=== PATIENT | female | born 1990 | race Caucasian/White ===

== ENCOUNTER → 2018-06-14 | Outpatient (CLI) | payer OTHER ==
[~2018-06-14] MED LIST: METR-197 PO; NITR-65 PO
--- NOTE | 2018-06-14 17:09 | Diagnostic Imaging Report ---
INDICATION: Evaluate growth. TECHNIQUE: Multiple real-time grayscale images were obtained over the gravid uterus. COMPARISON: 03/23/2018. FINDINGS: There is a single live fetus in a cephalic presentation. heart rate was recorded at 134 beats per minute. Placenta is posterior. Amniotic fluid volume is normal. Four chamber heart view was visualized today. The cervical length is 3.5 cm. Biophysical profile was performed. Amniotic fluid index is 10.4 cm. Overall score is 8 out of 8. Biometrical measurements are as follows: Biparietal 8.25 cm, age 33 weeks 2 days. Head circumference 29.89 cm, age 33 weeks 1 days. Abdominal circumference 29.17 cm, age 33 weeks 2 days. Femur length 6.34 cm, age 32 weeks 6 days. Sonographic estimate age: 33 weeks 1 days. Sonographic estimated date of delivery: 08/01/18. Estimated Weight: 2108 gm (+/- 308 gm). LMP percentile: 73%. heart rate: 134 beats per minute. number: 1 of 1. IMPRESSION: Single live IUP 33 weeks gestational age demonstrated normal interval growth when compared with prior exam. No abnormality is detected. The four-chamber heart view was visualized today. The overall biophysical profile score is normal at 8 out of 8. Dictated by: Dictated on workstation # [id number]
== END ==
LOC: RAD 10:54
PROVIDERS: ATTEND Obstetrics & Gynecology
DX: O24.410 Gestational diabetes mellitus in pregnancy, diet controlled (principal); Z3A.33 33 weeks gestation of pregnancy
CPT/HCPCS: 76805; 76819

== ENCOUNTER 2018-08-09 05:55 | Inpatient (IN) | payer OTHER ==
[2018-08-09] VITALS (57 sets, daily range): BP systolic 94–152; BP diastolic 50–92
[~2018-08-09] VITALS: Ht 177.8 cm; Wt 106.6 kg
--- NOTE | 2018-08-09 05:49 | NUR ---
FACUNDO MANRIQUEZ presented to unit via ambulatory from home, accompanied by so, with c/o INDUCTION. FACUNDO MANRIQUEZ weighed, gowned, voided, and to bed. EFHM and TOCO applied, VS taken. FACUNDO MANRIQUEZ oriented to bed controls, call light, TV, heat, and A/C controls.
[2018-08-09] MEDS ORDERED: MINERAL OIL CONCENTRATE 99.9% 15 ML UDC TOP PRN (06:15)
[2018-08-09 06:29] LABS: BILIRUBIN,URINE NEGATIVE (NEGATIVE); CLARITY,URINE CLEAR; COLOR,URINE YELLOW; GLUCOSE, URINE (UA) NEGATIVE (NEGATIVE); KETONES,URINE NEGATIVE (NEGATIVE); LEUKOCYTE ESTERASE ,URINE 3+ (NEGATIVE); NITRITE,URINE NEGATIVE (NEGATIVE); PH,URINE 6.5 (5-9); PROTEIN,URINE NEGATIVE (NEGATIVE); UROBILINOGEN,URINE NORMAL (NORMAL)
[2018-08-09 06:33] LABS: BASOPHILS % (AUTO) 0 % (0-10); EOSINOPHILS # (AUTO) 0.1 10^3/uL (0.0-0.3); EOSINOPHILS % (AUTO) 1 % (0-10); HEMATOCRIT 35 % (35-52); HEMOGLOBIN 11.9 G/DL (11.5-16.0); LYMPHOCYTES # (AUTO) 1.7 X 10^3 (1.0-4.0); LYMPHOCYTES % (AUTO) 24 % (12-44); MEAN CORPUSCULAR HGB CONC 34 G/DL (32-36); MEAN CORPUSCULAR VOLUME 86 FL (80-99); MEAN PLATELET VOLUME 11.6 FL (7.4-10.4); MONOCYTES # (AUTO) 0.6 X 10^3 (0.0-1.0); MONOCYTES % (AUTO) 9 % (0-12); NEUTROPHILS # (AUTO) 4.7 X 10^3 (1.8-7.8); NEUTROPHILS % (AUTO) 67 % (42-75); PLATELET COUNT 198 10^3/uL (130-400); RED BLOOD COUNT 4.04 10^6/uL (4.35-5.85); RED CELL DISTRIBUTION WIDTH 13.9 % (10.0-14.5)
[2018-08-09] MEDS ORDERED: LACTATED RINGERS 1,000 ML IV SCH ×2 (06:34→13:04)
[2018-08-09 06:36] LABS: BACTERIA,URINE MODERATE /HPF; WBC,URINE 0-2 /HPF
[2018-08-09 06:37] LABS: MEAN CORPUSCULAR HEMOGLOBIN 29 PG (25-34)
[2018-08-09] MEDS ORDERED: TERBUTALINE INJ 1 MG/ML (BRETHINE) AMP SC PRN (06:45)
[2018-08-09] MEDS ORDERED: MISOPROSTOL 100 MCG (CYTOTEC) TAB PO ONE (06:45)
[2018-08-09] MEDS: LACTATED RINGERS 1,000 ML IV SCH ×2 (08:42→16:51)
[2018-08-09] MEDS ORDERED: MISOPROSTOL 100 MCG (CYTOTEC) TAB PO SCH ×2 (10:45→12:00)
[2018-08-09] MEDS ORDERED: SUFENTA 0.6MCG/ML BUPIVA 0.125 100 ML ONE (12:04)
--- NOTE | 2018-08-09 12:10 | NUR ---
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 Procedure explained, consent reviewed and signed by anesthesia. Questions answered to patient's satisfaction. Time out taken to verify correct patient/procedure. Patient up to side of bed, assisted into sitting position. Betadine prep done x3 and sterile drape applied. Local done, see anesthesia record. Test dose given, see anesthesia record for drug and dosage. Epidural catheter secured in place. Epidural placement complete. Assisted back into bed, monitors adjusted. Epidural dosed, see anesthesia record. Epidural of Sufenta/Bupivicaine @ 12 cc/hr stated per pump. Patient tolerated procedure well.
[2018-08-09] MEDS: EPIDURAL (SUFENTA 0.6MCG/ML BUPIVA 0.125%) 100 ML BAG EPI SCH ×2 (12:43→18:49)
[2018-08-09] MEDS ORDERED: METOCLOPRAMIDE INJ 10 MG/2 ML (REGLAN) IV PRN (13:15)
[2018-08-09] MEDS ORDERED: NALOXONE 0.4 MG/ML 1 ML (NARCAN) VIAL IV PRN ×2 (13:15)
[2018-08-09] MEDS ORDERED: diphenhydrAMINE 50 MG/ML INJ (BENADRYL) IV PRN (13:15)
[2018-08-09] MEDS ORDERED: ONDANSETRON 4 MG/2 ML (SDV) Z0FRAN IV PRN (13:15)
[2018-08-09] MEDS ORDERED: CATHETER FLUSH 10 ML SYR IV SCH (14:00)
[2018-08-09] MEDS ORDERED: OXYTOCIN/NORMAL SALINE 500 ML IV ONE (15:22)
[2018-08-09] MEDS ORDERED: OXYTOCIN/NORMAL SALINE 500 ML IV SCH ×2 (16:00→22:06)
[2018-08-09] MEDS ORDERED: CETI10CA PO (16:28)
[2018-08-09] MEDS ORDERED: PREN1TAB79 PO (16:28)
[2018-08-09] MEDS ORDERED: CITRIC ACID/SOB CIT (BICITRA) 30 ML UDC ONE (19:04)
[2018-08-09] MEDS ORDERED: CITRIC ACID/SOB CIT (BICITRA) 30 ML UDC PO ONE (19:15)
--- NOTE | 2018-08-09 19:40 | NUR ---
Pt. called nurse in to room and states that she is feeling lots of pressure. SVE shows that pt is complete. 1941: Dr. Gerardo called and informed that pt is complete and 0 to -[address] Gerardo states that she will be up soon.
[2018-08-09] MEDS ORDERED: LIDOCAINE 1% INJ 20 ML 20 ML VIAL ONE (20:15)
--- NOTE | 2018-08-09 21:25 | NUR ---
2124: Delivery of viable female infant in labor and delivery room. to mom's chest at this time. Dried, warmed, and stimulated. Pitocin turned off at this time. 2135: Placenta delivered spontaneously. Pitocin wide open. Pt. remains in [facility] for repair of 2nd degree laceration. 2145: Lidocaine given at this time for relief of repair. 2199: done with repair. Fundus massaged by nurse at this time. 1 under umbilicus, firm, minimal bleeding noted. Pt cleaned up and taken out of stirrups. Chux changed for adequate assessment of bleeding.
--- NOTE | 2018-08-09 22:12 | OB Labor & Delivery Record ---
Vag Delivery Note Vag Delivery Note Date of Delivery: 08/09/18 Preoperative Diagnosis: Janie Malcolm is a 28 /Para 2 /0 , Gestational Age 40 weeks with gestationa diabetes, diet controlled Postoperative Diagnosis: Same Surgeon: TIMUR TUCKER Poultry Picker: Barrie Mcmanus, MS III Anesthesia: epidural Delivery Type: vaginal Findings: Viable female infant, apgars 9/9, weight 7#0 oz Lacerations: 2nd degree with partial capsulotomy Intact placenta with 3 vessel cord. No nuchal cord, body cord or shoulder dystocia Estimated Blood Loss: 750 ml Complications: None Condition: Stable Description of Procedure: The patient is a 28 /Para 2 /0 ,Gestational Age 40 weeks with gestational diabetes, diet controlled who presented for induction of labor. She was admitted and informed consent was obtained. Her labor course was remarkable for misoprostol x 2 then SROM and augmentation with Pitocin. She progressed to complete dilatation and began to push. She was then set up for delivery. The 's head was delivered atraumatically in the EMMETT position. The shoulders and remainder of the 's body were then delivered without difficulty. Upon delivery, the head was held below the level of the perineum and the mouth and nares were bulb suctioned. There was a loop of cord near the head, but not a nuchal cord. The cord was doubly clamped and cut and the was handed off to the pediatric staff. An intact placenta with 3-vessel cord delivered via [place] and there was found to be minimal bleeding.~ Vigorous fundal massage was performed and the fundus was found to be firm. IV oxytocin was given. Examination of the vagina and perineum revealed a 2nd degree laceration with a small tear in the capsule of the sphincter. This was repaired in the usual fashion with 3-0 vicryl suture. Following the repair, sponge, instrument and needle counts were correct. Mom and baby were both in stable condition in the labor suite. Vitals - Labs Vital Signs - I&O Vital Signs Date Time Temp Pulse Resp B/P (MAP) Pulse Ox O2 Delivery O2 Flow Rate FiO2 08/09/18 19:00 99.7 96 18 121/65 (83) 99 Room Air 08/09/18 18:45 99.2 96 18 94/53 (67) 98 Room Air 08/09/18 18:29 79 18 104/51 (68) 98 Room Air 08/09/18 18:15 86 18 120/61 (80) 97 Room Air 08/09/18 18:00 76 18 126/71 (89) 98 Room Air 08/09/18 17:45 98.9 75 18 130/69 (89) 97 Room Air 08/09/18 17:30 89 18 128/69 (88) 98 Room Air 08/09/18 17:15 81 18 117/77 (90) 98 Room Air 08/09/18 17:00 123 18 124/66 (85) 98 Room Air 08/09/18 16:45 98.6 63 18 117/65 (82) 99 Room Air 08/09/18 16:30 79 18 122/67 (85) 99 Room Air 08/09/18 16:15 63 18 123/68 (86) 98 Room Air 08/09/18 16:00 98.4 60 18 115/60 (78) 97 Room Air 08/09/18 15:45 57 18 115/62 (79) 98 Room Air 08/09/18 15:30 64 18 120/76 (91) 98 Room Air 08/09/18 15:15 74 18 118/74 (89) 98 Room Air 08/09/18 15:00 63 18 115/70 (85) 98 Room Air 08/09/18 14:45 72 18 121/56 (77) 99 Room Air 08/09/18 14:30 98.1 72 18 95/50 (65) 97 Room Air 08/09/18 14:15 82 18 116/70 (85) 98 Room Air 08/09/18 14:00 64 18 124/76 (92) 98 Room Air 08/09/18 13:45 68 18 104/59 (74) 98 Room Air 08/09/18 13:30 65 18 107/55 (72) 98 Room Air 08/09/18 13:15 89 18 117/72 (87) 99 Room Air 08/09/18 13:00 81 18 118/66 (83) 98 Room Air 08/09/18 12:45 98.8 84 18 117/70 (86) 98 Room Air 08/09/18 12:43 81 18 129/75 (93) 98 Room Air 08/09/18 12:36 79 18 126/77 (93) 98 Room Air 08/09/18 12:33 77 18 134/79 (97) 98 Room Air 08/09/18 12:30 75 18 134/71 (92) 99 Room Air 08/09/18 12:25 82 18 132/83 (99) 100 Room Air 08/09/18 12:16 89 18 152/70 (97) 100 Room Air 08/09/18 12:00 98.5 84 18 134/70 (91) Room Air 08/09/18 11:30 93 18 121/81 (94) Room Air 08/09/18 11:00 79 18 120/74 (89) Room Air 08/09/18 10:30 68 18 122/79 (93) Room Air 08/09/18 10:00 59 18 121/78 (92) Room Air 08/09/18 09:30 66 18 122/79 (93) Room Air 08/09/18 09:00 98.0 63 18 125/75 (92) Room Air 08/09/18 08:30 72 18 123/78 (93) Room Air 08/09/18 08:00 82 16 121/77 (92) Room Air 08/09/18 07:30 Room Air 08/09/18 06:00 90 16 145/92 (109) Room Air Labs Laboratory Tests 08/09/18 06:05: Urine Color YELLOW, Urine Clarity CLEAR, Urine pH 6.5, Urine Specific [place] 1.015L, Urine Protein NEGATIVE, Urine Glucose (UA) NEGATIVE, Urine Ketones NEGATIVE, Urine Nitrite NEGATIVE, Urine Bilirubin NEGATIVE, Urine Urobilinogen NORMAL, Urine Leukocyte Esterase 3+H, Urine RBC (Auto) NEGATIVE, Urine RBC NONE , Urine WBC 0-2, Urine Squamous Epithelial Cells 2-5, Urine Crystals NONE, Urine Bacteria MODERATEH, Urine Casts NONE, Urine Mucus NEGATIVE, Urine Culture Indicated NO 08/09/18 06:18: White Blood Count 7.0, Red Blood Count 4.04L, Hemoglobin 11.9, Hematocrit 35, Mean Corpuscular Volume 86, Mean Corpuscular Hemoglobin 29, Mean Corpuscular Hemoglobin Concent 34, Red Cell Distribution Width 13.9, Platelet Count 198, Mean Platelet Volume 11.6H, Neutrophils (%) (Auto) 67, Lymphocytes (%) (Auto) 24 , Monocytes (%) (Auto) 9, Eosinophils (%) (Auto) 1, Basophils (%) (Auto) 0, Neutrophils # (Auto) 4.7, Lymphocytes # (Auto) 1.7, Monocytes # (Auto) 0.6, Eosinophils # (Auto) 0.1, Basophils # (Auto) 0.0 08/09/18 06:45: Glucometer 104 TIMUR TUCKER DO Aug 09, 2018 22:12
[2018-08-09] MEDS ORDERED: MEASLES,MUMPS,RUBELLA 1 EA INJ SQ ONE (22:15)
[2018-08-09] MEDS ORDERED: TETANUS,DIPTH,PERTUSS P/F (BOOSTRIX) 0.5 ML VIAL IM ONE (22:15)
[2018-08-09] MEDS ORDERED: HYDROcodone/APAP 5 MG/325 MG (LORTAB) TAB PO PRN (22:15)
[2018-08-09] MEDS ORDERED: DIBUCAINE (NUPERCAINAL) 1% OINT 30 GM TOP PRN (22:15)
[2018-08-09] MEDS ORDERED: BENZOCAINE/MENTHOL (DERMOPLAST) 56 ML CAN TP PRN (22:15)
--- NOTE | 2018-08-09 22:15 | NUR ---
2215: Fundus firm and midline. One under umbilicus. Minimal bleeding noted at this time. 2230: Fundus firm and midline. One under umbilicus. Minimal bleeding noted at this time. at breast eating at this time. 2245: Fundus firm and midline. One under umbilicus. Minimal bleeding noted at this time. 2300: Fundus firm and midline. Two under umbilicus. Minimal bleeding noted at this time. Pt still can't move her left leg well. States that she does not feel the need to void at this time.
[2018-08-09] MEDS: IBUPROFEN 600 MG (MOTRIN) TAB PO SCH (23:05)
--- NOTE | 2018-08-09 23:45 | NUR ---
Fundus firm and two under. Minimal bleeding noted. Pt. cleaned up and pad and underwear put on. Epidural cath taken out. Tip intact. Pt transferred to wheelchair and transferred to room. While being transferred, pt states that she is feeling very light headed and about to pass out. Pt has no color and is starting to pass out by the time we got to room. Nurse called for help. Pt. vomiting at this time. Pt. helped to bed with help of multiple nurses. 0000: Vital taken and WNL's. 0006: BS 102 0015: Pt states that she is feeling much better. Pt's color has returned. Pt is sat up and has a sandwich tray at bedside. Family is now in the room. 0020: Cares turned over to Frankie Torres RN.
[2018-08-10] VITALS (7 sets, daily range): BP systolic 90–117; BP diastolic 48–76
[2018-08-10] MEDS: WITCH HAZEL(TUCKS) 40 EA JAR TOP PRN (04:00)
--- NOTE | 2018-08-10 04:00 | NUR ---
Infant back to room per nsy staff. VS taken on pt and stable. pt up to side of bed and dangling feet, denies s/s of light headedness. Pt standing with stand by assist and ambulated to bathroom to void. Small amount of lochia rubra noted. Void noted. Pericare explained and demonstrated. While changing pt's gown she states she is starting to feel like before. Help called for WC. Pt sitting on toilet with Rn in front of pt, cool cloth to face. No emesis noted. Pt transferred to with assist x2, pt still alert but feels light headed still, pale color to face. pt to bed and laying. pt states feeling much better laying down and color returns to face. VS taken and LR bolus infusing, zofran given for nausea. Will cont to monitor. Warm blanket given, s.o at bedside.
[2018-08-10] MEDS: LACTATED RINGERS 1,000 ML IV SCH (04:17)
[2018-08-10] MEDS: IBUPROFEN 600 MG (MOTRIN) TAB PO SCH ×3 (05:05→22:44)
[2018-08-10 05:14] LABS: BASOPHILS % (AUTO) 0 % (0-10); EOSINOPHILS % (AUTO) 0 % (0-10); HEMATOCRIT 27 % (35-52); LYMPHOCYTES # (AUTO) 1.6 X 10^3 (1.0-4.0); LYMPHOCYTES % (AUTO) 13 % (12-44); MEAN CORPUSCULAR HEMOGLOBIN 29 PG (25-34); MEAN CORPUSCULAR HGB CONC 33 G/DL (32-36); MEAN CORPUSCULAR VOLUME 89 FL (80-99); MONOCYTES % (AUTO) 7 % (0-12); NEUTROPHILS # (AUTO) 10.2 X 10^3 (1.8-7.8); NEUTROPHILS % (AUTO) 80 % (42-75); PLATELET COUNT 195 10^3/uL (130-400); RED BLOOD COUNT 3.06 10^6/uL (4.35-5.85); RED CELL DISTRIBUTION WIDTH 13.7 % (10.0-14.5); WHITE BLOOD COUNT 12.8 10^3/uL (4.3-11.0)
[2018-08-10] MEDS ORDERED: CATHETER FLUSH 10 ML SYR IV SCH (06:00)
--- NOTE | 2018-08-10 06:33 | NUR ---
Dr. Gerardo updated on pt's light headedness and dizziness with ambulation to the BR x2, Discussed hgb, and vs. No new orders received.
--- NOTE | 2018-08-10 07:50 | NUR ---
Jena Ocampo assisted pt up to bathroom. pt asymptomatic.
--- NOTE | 2018-08-10 08:39 | NUR ---
Dr Gerardo to see patient.
--- NOTE | 2018-08-10 09:03 | Anesthesia-Regional Post-Op ---
Regional Patient Condition Mental Status: Alert, Oriented x3 Circulation: Same as Pre-Op Headache: Absent Sensation: Full Recovery Motor Block: Absent Post Op Complications Complications None Follow Up Care/Instructions Patient Instructions None needed. Anesthesia/Patient Condition Patient is doing well, no complaints, stable vital signs, no apparent adverse anesthesia problems. No complications reported per nursing. FACUNDO GONZALEZ CRNA Aug 10, 2018 09:03
[2018-08-10] MEDS: FERROUS SULF 325 MG (IRON) TAB PO SCH (10:17)
[2018-08-10] MEDS: DOCUSATE SODIUM 100 MG (COLACE) CAP PO SCH ×2 (10:17→22:44)
[2018-08-10] MEDS: PRENATAL VITAMIN 1 EA TAB PO SCH (10:17)
--- NOTE | 2018-08-10 17:37 | Postpartum Progress Note ---
Note Note Day # 1 Subjective: Patient is without complaints. Ambulating, voiding. Tolerating a regular diet without nausea or vomiting. Normal lochia. Pain is well controlled with oral pain medications. [] feeding. [] Objective: Laboratory Tests Test 08/10/18 00:04 08/10/18 04:35 08/10/18 06:23 Range/Units Glucometer 102 95 70-110 MG/DL White Blood Count 12.8 H 4.3-11.0 10^3/uL Red Blood Count 3.06 L 4.35-5.85 10^6/uL Hemoglobin 9.0 #L 11.5-16.0 G/DL Hematocrit 27 L 35-52 % Mean Corpuscular Volume 89 80-99 FL Mean Corpuscular Hemoglobin 29 25-34 PG Mean Corpuscular Hemoglobin Concent 33 32-36 G/DL Red Cell Distribution Width 13.7 10.0-14.5 % Platelet Count 195 130-400 10^3/uL Mean Platelet Volume 12.0 H 7.4-10.4 FL Neutrophils (%) (Auto) 80 H 42-75 % Lymphocytes (%) (Auto) 13 12-44 % Monocytes (%) (Auto) 7 0-12 % Eosinophils (%) (Auto) 0 0-10 % Basophils (%) (Auto) 0 0-10 % Neutrophils # (Auto) 10.2 H 1.8-7.8 X 10^3 Lymphocytes # (Auto) 1.6 1.0-4.0 X 10^3 Monocytes # (Auto) 1.0 0.0-1.0 X 10^3 Eosinophils # (Auto) 0.0 0.0-0.3 10^3/uL Basophils # (Auto) 0.0 0.0-0.1 10^3/uL 08/10/18 08/10/18 08/10/18 10:16 13:50 17:22 Temp 98.4 97.9 98.4 Pulse 78 94 85 Resp 18 18 18 B/P (MAP) 110/66 (81) 117/76 (90) 111/71 (84) Pulse Ox 97 O2 Delivery Room Air Room Air Room Air 08/10/18 00:00 Intake Total 2000 ml Balance 2000 ml Physical Exam: General - Alert and oriented, no apparent distress Abdomen - Soft, appropriately tender to palpation, non-distended, fundus firm at umbilicus Extremities - no edema, negative Lance's bilaterally [] Assessment: [] post- day # [], status post [] vaginal delivery. Recovering well, hemodynamically stable [] Plan: Routine care. Encourage breast feeding. Encourage ambulation. Ferrous sulfate supplementation. Plan for discharge [] Vitals - Labs Vital Signs - I&O Vital Signs Date Time Temp Pulse Resp B/P (MAP) Pulse Ox O2 Delivery O2 Flow Rate FiO2 08/10/18 17:22 98.4 85 18 111/71 (84) Room Air 08/10/18 13:50 97.9 94 18 117/76 (90) Room Air 08/10/18 10:16 98.4 78 18 110/66 (81) 97 Room Air 08/10/18 04:11 65 18 97/56 (70) 100 Room Air 08/10/18 04:00 98.0 86 18 103/68 (80) 97 Room Air 08/10/18 00:00 98.0 86 18 117/73 (88) 98 Room Air 08/09/18 23:00 102 18 113/58 (76) 97 Room Air 08/09/18 22:45 99 18 126/72 (90) 97 Room Air 08/09/18 22:30 98.2 96 18 116/59 (78) 97 Room Air 08/09/18 22:15 102 18 125/58 (80) 97 Room Air 08/09/18 22:00 99.2 98 20 115/58 (77) Room Air 08/09/18 21:45 104 20 115/65 (82) Room Air 08/09/18 21:30 87 20 116/72 (87) Room Air 08/09/18 21:15 99.0 122 22 92 Room Air 08/09/18 21:00 97 20 134/71 (92) 97 Room Air 08/09/18 20:45 99.7 78 20 135/68 (90) 99 Room Air 08/09/18 20:30 86 20 140/61 (87) 99 Room Air 08/09/18 20:15 79 20 130/72 (91) 99 Room Air 08/09/18 20:00 81 18 132/76 (94) 99 Room Air 08/09/18 19:45 81 18 125/71 (89) 99 Room Air 08/09/18 19:30 99.5 82 18 127/70 (89) 98 Room Air 08/09/18 19:15 81 18 117/71 (86) 98 Room Air 08/09/18 19:00 99.7 96 18 121/65 (83) 99 Room Air 08/09/18 18:45 99.2 96 18 94/53 (67) 98 Room Air 08/09/18 18:29 79 18 104/51 (68) 98 Room Air 08/09/18 18:15 86 18 120/61 (80) 97 Room Air 08/09/18 18:00 76 18 126/71 (89) 98 Room Air 08/09/18 17:45 98.9 75 18 130/69 (89) 97 Room Air I & O 08/10/18 07:00 Intake Total 3000 ml Balance 3000 ml Labs Laboratory Tests 08/10/18 00:04: Glucometer 102 08/10/18 04:35: White Blood Count 12.8H, Red Blood Count 3.06L, Hemoglobin 9.0#L, Hematocrit 27L , Mean Corpuscular Volume 89, Mean Corpuscular Hemoglobin 29, Mean Corpuscular Hemoglobin Concent 33, Red Cell Distribution Width 13.7, Platelet Count 195, Mean Platelet Volume 12.0H, Neutrophils (%) (Auto) 80H, Lymphocytes (%) (Auto) 13, Monocytes (%) (Auto) 7, Eosinophils (%) (Auto) 0, Basophils (%) (Auto) 0, Neutrophils # (Auto) 10.2H, Lymphocytes # (Auto) 1.6, Monocytes # (Auto) 1.0, Eosinophils # (Auto) 0.0, Basophils # (Auto) 0.0 08/10/18 06:23: Glucometer 95 TIMUR TUCKER DO Aug 10, 2018 17:37
[2018-08-11 04:42] VITALS: BP 117/69
[2018-08-11] MEDS: IBUPROFEN 600 MG (MOTRIN) TAB PO SCH ×2 (04:42→11:48)
[2018-08-11 07:30] VITALS: BP 120/66
[2018-08-11] MEDS ORDERED: DOCU100C37 PO (08:23)
[2018-08-11] MEDS ORDERED: ACET-2267 PO (08:23)
[2018-08-11] MEDS ORDERED: IBUP-844 PO (08:23)
[2018-08-11] MEDS ORDERED: FERR325T18 PO (08:23)
--- NOTE | 2018-08-11 08:31 | Discharge Inst-Women's Service ---
Discharge Inst-Women's Serv Depart Medication/Instructions New, Converted or Re-Newed RX: RX on Chart Final Diagnosis gestational diabetes post hemorrhage ;perineal laceration with repair acute blood loss anemia Consults/Follow Up Additional Follow Up: Yes (2 weeks with Meghana Sosa for perineal exam and wellness check. 6 weeks post exam. 2 hour glucola at that visit) Activity Activity: Activity as Tolerated Driving Instructions: No Driving for 1 Week NO SMOKING: NO SMOKING Nothing Inside Vagina: No Douching, No [place], No Tampons Diet Discharge Diet: No Restrictions Symptoms to Report to : Bleeding Excessive, Eyesight Changes, Pain Increased , Fever Over 101 Degrees F, Vaginal Bleeding Increase, Cramps in Feet or Legs, Vaginal Discharge Foul For Any Problems or Questions: Contact Your Physician TIMUR TUCKER DO Aug 11, 2018 08:30
[2018-08-11] MEDS: PRENATAL VITAMIN 1 EA TAB PO SCH (08:36)
[2018-08-11] MEDS: FERROUS SULF 325 MG (IRON) TAB PO SCH (08:36)
[2018-08-11] MEDS: DOCUSATE SODIUM 100 MG (COLACE) CAP PO SCH (08:36)
[2018-08-11] MEDS: WITCH HAZEL(TUCKS) 40 EA JAR TOP PRN (08:46)
[2018-08-11 13:30] VITALS: BP 120/64
--- NOTE | 2018-08-11 15:00 | NUR ---
Discharge instructions given as well as handouts regarding foods rich in iron and anemia. Pt verbalized understanding. Given scripts Ibuprofen, Colace, and Fe. Infant to remain in hospital, while mom while be a boarder.
--- NOTE | 2018-08-11 16:28 | NUR ---
PT DISCHARGED TO BOARDER STATUS, PTS S/O AT SIDE, PT TO ROOM IN UNTIL INFANTS D/C HOME, PT VERBALIZES UNDERSTANDING OF BOARDER STATUS, NO DISTRESS NOTED.
== END 2018-08-11 16:28 | disposition home or self-care (01) | DRG 806 ==
LOC: LDRP 05:55
PROVIDERS: ADMIT Obstetrics & Gynecology; ATTEND Obstetrics & Gynecology
PROC: 10E0XZZ Delivery of Products of Conception, External Approach (ICD-10-PCS; principal; 2018-08-09)
PROC: 0KQM0ZZ Repair Perineum Muscle, Open Approach (ICD-10-PCS; 2018-08-09)
PROC: 3E0DXGC Introduction of Other Therapeutic Substance into Mouth and Pharynx, External Approach (ICD-10-PCS; 2018-08-09)
DX: O24.420 Gestational diabetes mellitus in childbirth, diet controlled (principal); O70.1 Second degree perineal laceration during delivery; O72.2 Delayed and secondary postpartum hemorrhage; O90.81 Anemia of the puerperium; D62 Acute posthemorrhagic anemia; Z37.0 Single live birth; Z3A.40 40 weeks gestation of pregnancy
CPT/HCPCS: 36415; 81000; 82962; 85025; 86850; 86900; 86901

== ENCOUNTER → 2021-03-31 | Outpatient (CLI) | payer BC ==
[~2021-03-31] MED LIST changes: +ACET-2267 PO; +CETI10CA PO; +DOCU100C37 PO; +FERR325T18 PO; +IBUP-844 PO; +METR-145 PO; -METR-197 PO; +PREN1TAB79 PO
--- NOTE | 2021-03-31 18:38 | Diagnostic Imaging Report ---
INDICATION: 1st trimester , uncertain viability OB sonography performed with transabdominal views. The uterus measured 13.3 x 6.1 x 8.1 cm. Neither ovary could be visualized but there was a probable large cyst in the right adnexal region measuring 8.5 x 7.2 x 5.7 cm. There is a single live intrauterine fetus measuring 8 weeks 3 days in size with a heart rate 170 bpm. There is no subchorionic bleed visualized. IMPRESSION: Single live intrauterine fetus measuring 8 weeks 3 days in size by crown-rump length with a heart rate of 170 bpm. No subchorionic bleed. There is a large right adnexal cyst measuring 8.5 cm. Suggest follow-up as clinically warranted. Dictated by: Dictated on workstation # [id number]
== END ==
LOC: RAD 14:06
PROVIDERS: ATTEND Obstetrics & Gynecology
DX: O36.80X9 Pregnancy with inconclusive fetal viability, other fetus (principal); N83.8 Other noninflammatory disorders of ovary, fallopian tube and broad ligament; Z3A.08 8 weeks gestation of pregnancy
CPT/HCPCS: 76801

== ENCOUNTER → 2021-06-12 | Outpatient (CLI) | payer BC ==
--- NOTE | 2021-06-12 15:30 | Diagnostic Imaging Report ---
INDICATION: survey. TECHNIQUE: Multiple real-time grayscale images were obtained over the gravid uterus. COMPARISON: None FINDINGS: There is a single live fetus in a transverse presentation, head to the maternal right. heart rate was recorded at 144 bpm. Placenta is posterior and to the right. Amniotic fluid volume is normal. survey shows kidneys, bladder and stomach to be unremarkable. brain is unremarkable. There is a four-chamber heart. Left ventricular outflow tract was not well seen on today's study. There is a three-vessel cord with normal insertion. spine is unremarkable. facial structures were not well-seen on today's study due to position. Biometrical measurements are as follows: Biparietal 4.39 cm, age 19 weeks 2 days. Head circumference 16.13 cm, age 19 weeks 0 days. Abdominal circumference 13.67 cm, age 19 weeks 1 days. Femur length 3.03 cm, age 19 weeks 3 days. Sonographic estimate age: 19 weeks 2 days. Sonographic estimated date of delivery: 11/04/21. Estimated Weight: 280 gm (+/- 41 gm). LMP percentile: 58%. heart rate: 144 beats per minute. number: 1 of 1. IMPRESSION: Single live IUP 19 weeks 2 days gestational age. Estimated date of confinement sonographically is 11/04/2021. Dictated by: Dictated on workstation # [id number]
== END ==
LOC: RAD 10:00
PROVIDERS: ATTEND Obstetrics & Gynecology
DX: Z34.92 Encounter for supervision of normal pregnancy, unspecified, second trimester (principal); Z3A.19 19 weeks gestation of pregnancy
CPT/HCPCS: 76805

== ENCOUNTER → 2021-07-22 | Outpatient (CLI) | payer BC ==
--- NOTE | 2021-07-22 15:08 | Diagnostic Imaging Report ---
INDICATION: anatomy. Follow-up not seen on initial anatomy survey. TECHNIQUE: Multiple real-time grayscale images were obtained over the gravid uterus. COMPARISON: None FINDINGS: Both adnexa are imaged, but there is a large amount of bowel gas present obscuring the adnexa. The cervix measures approximately 5.3 cm. The fetus is in cephalic presentation. Posterior and fundal placenta. No previa. heart rate is 153 bpm. Limited anatomy assessment was performed for the structures that are not seen on prior examination. On today's examination, the left ventricular outflow tract and right ventricular outflow tracks are normal. profile and lip/nose are normal. The NETTA is normal at 12.05 cm. IMPRESSION: 1. Single live intrauterine . 2. The anatomy not seen on prior examination is normal on today's exam. Dictated by: Dictated on workstation # [id number]
== END ==
LOC: RAD 10:00
PROVIDERS: ATTEND Obstetrics & Gynecology
DX: Z36.9 Encounter for antenatal screening, unspecified (principal)
CPT/HCPCS: 76816

== ENCOUNTER 2021-10-30 20:00 | Inpatient (IN) | payer BC ==
[~2021-10-30] VITALS: Ht 177.8 cm; Wt 111.7 kg
[2021-10-30 20:30] VITALS: BP 125/67
[2021-10-30] MEDS ORDERED: MINERAL OIL 30 ML OIL TOP PRN (21:30)
[2021-10-30] MEDS ORDERED: TERBUTALINE INJ 1 MG/ML (BRETHINE) AMP SC PRN (21:30)
[2021-10-30] MEDS ORDERED: D5 LR IV SOLUTION 1,000 ML IV ONE (21:33)
[2021-10-30 21:35] LABS: BASOPHILS % (AUTO) 0 % (0-10); EOSINOPHILS % (AUTO) 1 % (0-10); HEMATOCRIT 35 % (35-52); HEMOGLOBIN 12.1 g/dL (11.5-16.0); LYMPHOCYTES # (AUTO) 2.1 10^3/uL (1.0-4.0); LYMPHOCYTES % (AUTO) 32 % (12-44); MEAN CORPUSCULAR HEMOGLOBIN 31 pg (25-34); MEAN CORPUSCULAR HGB CONC 34 g/dL (32-36); MEAN CORPUSCULAR VOLUME 90 fL (80-99); MEAN PLATELET VOLUME 12.3 fL (9.0-12.2); MONOCYTES # (AUTO) 0.5 10^3/uL (0.0-1.0); MONOCYTES % (AUTO) 7 % (0-12); NEUTROPHILS # (AUTO) 3.8 10^3/uL (1.8-7.8); NEUTROPHILS % (AUTO) 59 % (42-75); PLATELET COUNT 184 10^3/uL (130-400); WHITE BLOOD COUNT 6.4 10^3/uL (4.3-11.0)
[2021-10-30 21:38] LABS: BILIRUBIN,URINE NEGATIVE (NEGATIVE); CLARITY,URINE CLEAR; COLOR,URINE YELLOW; GLUCOSE, URINE (UA) NEGATIVE (NEGATIVE); KETONES,URINE NEGATIVE (NEGATIVE); LEUKOCYTE ESTERASE ,URINE TRACE (NEGATIVE); NITRITE,URINE NEGATIVE (NEGATIVE); PH,URINE 7.5 (5-9); PROTEIN,URINE NEGATIVE (NEGATIVE)
[2021-10-30] MEDS: LACTATED RINGERS 1,000 ML IV SCH (21:39)
[2021-10-30] MEDS: D5 LR IV SOLUTION 1,000 ML IV SCH (21:39)
[2021-10-30] MEDS: CATHETER FLUSH 10 ML SYR IV SCH (21:41)
[2021-10-30 21:45] VITALS: BP 111/65
[2021-10-30 22:00] LABS: BACTERIA,URINE NEGATIVE /HPF; SQUAMOUS EPITHELIAL CELL,UR 0-2 /HPF
[2021-10-30] MEDS ORDERED: SERT-413 PO (22:11)
[2021-10-30] MEDS ORDERED: FEXO1TAB43 PO (22:11)
[2021-10-30] MEDS ORDERED: DOXY1TAB3 PO (22:11)
[2021-10-30] MEDS ORDERED: FAMO-144 PO (22:11)
[2021-10-30 22:15] VITALS: BP 104/65
[2021-10-30 22:45] VITALS: BP 115/73
[2021-10-30 23:35] VITALS: BP 115/62
[2021-10-30 23:45] VITALS: BP 116/65
[2021-10-31] VITALS (54 sets, daily range): BP systolic 95–194; BP diastolic 53–83
[2021-10-31] MEDS: D5 LR IV SOLUTION 1,000 ML IV SCH (05:32)
[2021-10-31] MEDS: CATHETER FLUSH 10 ML SYR IV SCH (06:19)
--- NOTE | 2021-10-31 07:23 | History & Physical-OB ---
OB - Chief Complaint & HPI Date/Time Date of Admission: Date of Admission: Oct 30, 2021 at 20:55 Date seen by a Provider: Oct 31, 2021 Time Seen by a Provider: 07:20 Chief Complaint/History OB-Reason for Admission/Chief: Induction of Labor Hx : 3 Hx Para: 1 Expected Date of Delivery: Nov 06, 2021 Gestational Age in Weeks: 39 Gestational Age in Days: 0 Indication for induction: maternal distance, other (social) Other reason for admission: This is a 31 year old at 39 weeks who presents for scheduled social induction. She has had an uncomplicated delivery. She was admitted on 10/30/2021 for cervical ripening with augmentation on 10/31/2021. Peds - [facility] Anticipate Admission Nurse Assessment Rev: Yes History of Labs B+/- HBsAg- HIV - VDRL NR Rub I GBS - Allergies and Home Medications Allergies Coded Allergies: cephalexin (Verified Allergy, Unknown, 06/23/16) Patient Home Medication List Home Medication List Reviewed: Yes Acetaminophen (Tylenol Extra Strength) 500 Mg Tablet, 1,000 MG PO Q6H Prescribed by: TIMUR TUCKER on 08/11/18 0823 Last Action: Reviewed Doxylamine/Pyridoxine HCl (Diclegis Dr 10-10 mg Tablet) 1 Each Tablet.dr, 1 EACH PO DAILY, (Reported) Entered as Reported by: DAVIDSON VUONG on 10/30/212210 Last Action: Reviewed Famotidine (Acid Shuffle Board Operator (FAMOTIDINE)) 10 Mg Tablet, 10 MG PO DAILY, (Reported) Entered as Reported by: DAVIDSON VUONG on 10/30/212210 Last Action: Reviewed Fexofenadine/Pseudoephedrine (Mirta-D 24 Hour Tablet) 1 Each Tab.er.24h, 1 EACH PO DAILY, (Reported) Entered as Reported by: DAVIDSON VUONG on 10/30/212210 Last Action: Reviewed Vit W-Ca,Fe,FA(<1 mg) ( Vitamins) 1 Each Tablet, 1 EACH PO DAILY, (Reported) Entered as Reported by: HAYLIE DANIEL on 08/09/18 1628 Last Action: Reviewed Sertraline HCl (Sertraline HCl) 50 Mg Tablet, 75 MG PO DAILY, (Reported) Entered as Reported by: DAVIDSON VUONG on 10/30/212210 Last Action: Reviewed Discontinued Medications Cetirizine HCl (Zyrtec) 10 Mg Capsule, 10 MG PO DAILY, (Reported) Discontinued Reason: No Longer Taking Entered as Reported by: HAYLIE DANIEL on 08/09/181627 Last Action: Discontinued Docusate Sodium (Docusate Sodium) 100 Mg Capsule, 100 MG PO BID Discontinued Reason: No Longer Taking Prescribed by: TIMUR TUCKER on 08/11/18822 Last Action: Discontinued Ferrous Sulfate (Ferrous Sulfate) 325 Mg Tablet, 325 MG PO BID Discontinued Reason: No Longer Taking Prescribed by: TIMUR TUCKER on 08/11/18822 Last Action: Discontinued Ibuprofen (Ibu) 600 Mg Tablet, 600 MG PO Q6H Discontinued Reason: No Longer Taking Prescribed by: TIMUR TUCKER on 08/11/18822 Last Action: Discontinued OB - History Hx of Present Care: Yes Ultrasounds: Normal mid trimester US, Abnormal US findings (Large (8 cm) simple right ovarian/adnexal cyst ) Obstetrical Complications: None Medical Complications: None Information Induced Hypertension: No Maternal Gestational Diabetes: No Hemorrhage: Yes (750 ml blood loss with first . Did not require additional treatme) Obstetrical History Hx : 3 Hx Para: 1 Hx # Term Pregnancies: 1 Hx # Pregnancies: 0 Number of Living Children: 1 Hx Termination: No Hx Multiple Gestation: No Hx Ectopic : No Hx Stillbirth: No Hx Complication: No Hx Induced Hypertens: No Hx Maternal Gestational Diabet: No Hx Hemorrhage: Yes Delivery History Hx Dystocia: No Hx Forceps Assisted Delivery: No Hx Vacuum Extraction Assisted: No Hx Placenta Abnormality: No Hx Distress: No Hx Large For Gestational Age I: No Hx Small for Gestational Age I: No Hx Section: No Hx Vaginal Delivery Post C-Sec: No Hx Blood Disorders: No Adverse Rxn to Tranfusion: No Patient Past Medical History NC Social History/Family History Alcohol Use: Denies Use Recreational Drug Use: No Smoking Cessation: Never smoker 2nd Hand Smoke Exposure: No Immunizations Influenza Vaccine Up-to-Date: Yes; Up-to-Date (05/16/21) Hepatitis A: Yes Hepatitis B: Yes Tetanus Booster (TDap): Less than 5yrs (08/27/21) Rubella: immune RPR/VDRL: Negative GBS Status: Negative HBsAG: Negative OB - Admission Exam Physical Exam Vitals: Vital Signs 10/31/21 10/31/21 05:45 06:45 Temp 36.2 Pulse 79 Resp 18 B/P (MAP) 110/60 (77) Pulse Ox 97 O2 Delivery Room Air HEENT: NCAT Heart: Rhythm Normal Lungs: Clear Abdomen: Gravid Extremities: Normal Reflexes: Normal Cervical Dilatation: 1cm Effacement: 50% Station: -2 Membranes: Intact Heart Rate: 130's Accelerations: Accelerations Present Decelerations: No Decelerations Short Term Variability: Present Longterm Variability: Average (6-25) Contractions on Admission: >10 Minutes Apart Labs Laboratory Tests Test 10/30/21 20:25 Range/Units White Blood Count 6.4 4.3-11.0 10^3/uL Red Blood Count 3.94 3.80-5.11 10^6/uL Hemoglobin 12.1 11.5-16.0 g/dL Hematocrit 35 35-52 % Mean Corpuscular Volume 90 80-99 fL Mean Corpuscular Hemoglobin 31 25-34 pg Mean Corpuscular Hemoglobin Concent 34 32-36 g/dL Red Cell Distribution Width 13.5 10.0-14.5 % Platelet Count 184 130-400 10^3/uL Mean Platelet Volume 12.3 H 9.0-12.2 fL Immature Granulocyte % (Auto) 1 % Neutrophils (%) (Auto) 59 42-75 % Lymphocytes (%) (Auto) 32 12-44 % Monocytes (%) (Auto) 7 0-12 % Eosinophils (%) (Auto) 1 0-10 % Basophils (%) (Auto) 0 0-10 % Neutrophils # (Auto) 3.8 1.8-7.8 10^3/uL Lymphocytes # (Auto) 2.1 1.0-4.0 10^3/uL Monocytes # (Auto) 0.5 0.0-1.0 10^3/uL Eosinophils # (Auto) 0.0 0.0-0.3 10^3/uL Basophils # (Auto) 0.0 0.0-0.1 10^3/uL Immature Granulocyte # (Auto) 0.0 0.0-0.1 10^3/uL Urine Color YELLOW Urine Clarity CLEAR Urine pH 7.5 5-9 Urine Specific [place] 1.015 L 1.016-1.022 Urine Protein NEGATIVE NEGATIVE Urine Glucose (UA) NEGATIVE NEGATIVE Urine Ketones NEGATIVE NEGATIVE Urine Nitrite NEGATIVE NEGATIVE Urine Bilirubin NEGATIVE NEGATIVE Urine Urobilinogen 0.2 < = 1.0 MG/DL Urine Leukocyte Esterase TRACE H NEGATIVE Urine RBC (Auto) NEGATIVE NEGATIVE Urine RBC NONE /HPF Urine WBC NONE /HPF Urine Squamous Epithelial Cells 0-2 /HPF Urine Crystals NONE /LPF Urine Bacteria NEGATIVE /HPF Urine Casts NONE /LPF Urine Mucus NEGATIVE /LPF Urine Culture Indicated NO OB - Assessment/Plan/Diagnosis Assessment Assessment: induction of labor Admission Dx 39 week gestation induction of labor planned Anticipate Peds - [facility] Admission Status: Inpatient Order (span 2 midnights) Reason for Inpatient Admission: labor Plan Plan: Induction Induction Method: per Misoprostol Protocol TIMUR TUCKER DO Oct 31, 2021 07:23
[2021-10-31] MEDS ORDERED: OXYTOCIN PRE-MIX DRIP 500 ML IV SCH ×2 (09:30→10:00)
[2021-10-31] MEDS ORDERED: BUTORPHANOL INJ 2 MG/ML (STADOL) VIAL IV ONE (10:00)
[2021-10-31] MEDS ORDERED: fentaNYL 2 mcg/ml BUPIVA 0.125 100 ML ONE (10:43)
[2021-10-31] MEDS: LACTATED RINGERS 1,000 ML IV SCH (10:48)
[2021-10-31] MEDS ORDERED: fentaNYL INJ 100 MCG/2 ML AMP ONE (11:46)
[2021-10-31] MEDS ORDERED: BUPIVACAINE 0.25% 10 ML (SENSORCAINE) VIAL ONE (11:47)
[2021-10-31] MEDS ORDERED: MINERAL OIL CONCENTRATE 99.9% 15 ML UDC ONE (12:35)
[2021-10-31] MEDS ORDERED: LIDOCAINE/EPI 2% 1:200,00 (XYLOCAINE) 10 ML VIAL ONE (12:35)
--- NOTE | 2021-10-31 12:58 | OB Labor & Delivery Record ---
Vag Delivery Note Vag Delivery Note Date of Delivery: 10/31/21 Preoperative Diagnosis: Janie Malcolm is a 31 /Para 3/1 , Gestational Age 39 1/7 weeks, for social induction Postoperative Diagnosis: Same Surgeon: TIMUR TUCKER Anesthesia: epidural Delivery Type: Findings: Viable female , apgars 5/8, weight pending Lacerations: 1st degree, supraurethral Intact placenta with 3 vessel cord. Nuchal cord/body cord x 1 delivered through. No shoulder dystocia Estimated Blood Loss: 250 ml Complications: None Condition: Stable Description of Procedure: The patient is a 31 year old female who presented for social induction of labor at 39 weeks. She was admitted and informed consent was obtained. Her labor course was remarkable for misoprostol cervical ripening, AROM at 4 cm. She progressed to complete dilatation and began to push. She was then set up for delivery. The infant's head was delivered atraumatically in the EMMETT position. The shoulders and remainder of the 's body were then delivered without difficulty. There was a nuchal cord that was fairly tight, that also wrapped the body. The delivery was rapid, so it was not reduced, just delivered through. Upon delivery, the head was held below the level of the perineum and the mouth and nares were bulb suctioned. The cord was doubly clamped and cut and the was handed off to the pediatric staff. An intact placenta with 3-vessel cord delivered via [place] and there was found to be minimal bleeding.~ Vigorous fundal massage was performed and the fundus was found to be firm. IV oxytocin was given. Examination of the vagina and perineum revealed a 1st deg laceration repaired in the usual fashion with 3-0 vicryl suture. She also had a supraurethral laceration that extended superiorly to the base of the clitoris. There was a vessel that was fairly rapidly bleeding. A figure of eight stitch was placed to control bleeding. The edges were then reapproximated, all with 3-0 vicryl. Following the repair, sponge, instrument and needle counts were correct. Mom and baby were both in stable condition in the labor suite. Vitals - Labs Vital Signs - I&O Vital Signs Date Time Temp Pulse Resp B/P (MAP) Pulse Ox O2 Delivery O2 Flow Rate FiO2 10/31/21 12:19 72 18 114/62 (79) 97 Room Air 4/1/22 12:17 69 18 127/66 (86) 97 Room Air 10/31/21 12:14 75 18 113/71 (85) 97 Room Air 10/31/21 12:11 67 18 95/53 (67) 10/31/21 12:08 61 18 194/69 (110) 97 Room Air 10/31/21 12:04 71 18 123/78 (93) 97 Room Air 10/31/21 12:01 70 18 124/82 (96) 99 Room Air 10/31/21 11:58 66 18 121/79 (93) 97 Room Air 10/31/21 11:55 69 18 134/83 (100) 96 Room Air 10/31/21 11:52 71 18 133/83 (100) 97 Room Air 10/31/21 10:59 65 18 108/58 (75) Room Air 10/31/21 10:41 80 18 136/80 (98) Room Air 10/31/21 10:29 73 18 129/70 (89) Room Air 10/31/21 10:11 70 18 116/62 (80) Room Air 10/31/21 09:57 74 18 114/69 (84) Room Air 10/31/21 09:45 70 18 117/70 (86) Room Air 10/31/21 09:14 67 18 122/69 (86) Room Air 10/31/21 08:30 36.1 71 18 122/70 (87) Room Air 10/31/21 06:45 79 18 110/60 (77) Room Air 10/31/21 06:15 71 18 114/69 (84) Room Air 10/31/21 05:45 36.2 67 18 116/62 (80) 97 Room Air 10/31/21 05:15 80 18 108/73 (85) Room Air 10/31/21 04:45 74 18 104/61 (75) Room Air 10/31/21 04:15 68 18 107/57 (74) Room Air 10/31/21 03:45 69 18 117/59 (78) Room Air 10/31/21 03:15 36.3 75 18 114/69 (84) Room Air 10/31/21 02:45 85 18 108/62 (77) Room Air 10/31/21 02:15 73 18 108/58 (75) Room Air 10/31/21 01:45 67 18 113/59 (77) Room Air 10/31/21 01:15 67 18 111/62 (78) Room Air 10/31/21 00:45 73 18 109/61 (77) Room Air 10/31/21 00:15 72 18 117/67 (84) Room Air 10/30/21 23:45 61 18 116/65 (82) Room Air 10/30/21 23:35 36.6 74 18 115/62 (79) 97 Room Air 10/30/21 22:45 70 18 115/73 (87) Room Air 10/30/21 22:15 71 18 104/65 (78) Room Air 10/30/21 21:45 71 18 111/65 (80) Room Air 10/30/21 20:30 36.4 74 18 125/67 (86) 98 Room Air 10/30/21 20:30 36.4 74 18 98 Room Air I & O 10/31/21 07:00 Intake Total 1000 ml Balance 1000 ml Labs Laboratory Tests 10/30/21 20:25: White Blood Count 6.4, Red Blood Count 3.94, Hemoglobin 12.1, Hematocrit 35, Mean Corpuscular Volume 90, Mean Corpuscular Hemoglobin 31, Mean Corpuscular Hemoglobin Concent 34, Red Cell Distribution Width 13.5, Platelet Count 184, Mean Platelet Volume 12.3H, Immature Granulocyte % (Auto) 1, Neutrophils (%) (Auto) 59, Lymphocytes (%) (Auto) 32, Monocytes (%) (Auto) 7, Eosinophils (%) (Auto) 1, Basophils (%) (Auto) 0, Neutrophils # (Auto) 3.8, Lymphocytes # (Auto) 2.1, Monocytes # (Auto) 0.5, Eosinophils # (Auto) 0.0, Basophils # (Auto) 0.0, Immature Granulocyte # (Auto) 0.0, Urine Color YELLOW, Urine Clarity CLEAR, Urine pH 7.5, Urine Specific [place] 1.015L, Urine Protein NEGATIVE, Urine Glucose (UA) NEGATIVE, Urine Ketones NEGATIVE, Urine Nitrite NEGATIVE, Urine Bilirubin NEGATIVE, Urine Urobilinogen 0.2, Urine Leukocyte Esterase TRACEH, Urine RBC (Auto) NEGATIVE, Urine RBC NONE, Urine WBC NONE, Urine Squamous Epithelial Cells 0-2, Urine Crystals NONE, Urine Bacteria NEGATIVE, Urine Casts NONE, Urine Mucus NEGATIVE, Urine Culture Indicated NO TIMUR TUCKER DO Oct 31, 2021 12:58
[2021-10-31] MEDS ORDERED: MEASLES,MUMPS,RUBELLA 1 EA INJ SQ ONE (13:00)
[2021-10-31] MEDS ORDERED: NALOXONE 0.4 MG/ML 1 ML (NARCAN) VIAL IV PRN ×2 (13:00→14:30)
[2021-10-31] MEDS ORDERED: DIBUCAINE 1% OINTMENT 30 GM TUBE TOP PRN (13:00)
[2021-10-31] MEDS ORDERED: TETANUS,DIPTH,PERTUSS P/F (BOOSTRIX) 0.5 ML VIAL IM ONE (13:00)
[2021-10-31] MEDS ORDERED: BENZOCAINE/MENTHOL (DERMOPLAST) 56 ML CAN TP PRN (13:00)
[2021-10-31] MEDS: OXYTOCIN PRE-MIX DRIP 500 ML IV SCH (13:48)
[2021-10-31] MEDS ORDERED: IBUP-844 PO (13:59)
[2021-10-31] MEDS ORDERED: ACET-2267 PO (13:59)
[2021-10-31] MEDS ORDERED: CATHETER FLUSH 10 ML SYR IV SCH (14:00)
--- NOTE | 2021-10-31 14:00 | Discharge Inst-Women's Service ---
Discharge Inst-Women's Serv Depart Medication/Instructions New, Converted or Re-Newed RX: Transmitted to Pharmacy Final Diagnosis induction vaginal delivery Problems Reviewed?: Yes (6 week pp) Consults/Follow Up Additional Follow Up: Yes Activity Activity: Activity as Tolerated Driving Instructions: You May Drive NO SMOKING: NO SMOKING Nothing Inside Vagina: No Douching, No [place], No Tampons Diet Discharge Diet: No Restrictions Symptoms to Report to : Swelling Increased, Bleeding Excessive, Pain Increased, Fever Over 101 Degrees F, Vaginal Bleeding Increase, Cramps in Feet or Legs, Vaginal Discharge Foul For Any Problems or Questions: Contact Your Physician TIMUR TUCKER DO Oct 31, 2021 14:00
[2021-10-31] MEDS ORDERED: ONDANSETRON 4 MG/2 ML (SDV) Z0FRAN IV PRN (14:30)
[2021-10-31] MEDS ORDERED: fentaNYL 2 mcg/ml BUPIVA 0.125 100 ML IV SCH (14:30)
[2021-10-31] MEDS ORDERED: LACTATED RINGERS 1,000 ML IV ONE (14:30)
[2021-10-31] MEDS ORDERED: diphenhydrAMINE 50 MG/ML INJ (BENADRYL) IV PRN (14:30)
[2021-10-31] MEDS ORDERED: CATHETER FLUSH 10 ML SYR IV PRN (14:30)
[2021-10-31] MEDS: WITCH HAZEL(TUCKS) 40 EA JAR TOP PRN (16:21)
[2021-10-31] MEDS: ACETAMINOPHEN 500 MG TAB (TYLENOL) PO SCH (16:26)
[2021-10-31] MEDS: IBUPROFEN 600 MG (MOTRIN) TAB PO SCH (21:09)
[2021-10-31] MEDS: DOCUSATE SODIUM 100 MG (COLACE) CAP PO SCH (21:09)
[2021-11-01] VITALS: BP 132/68
[2021-11-01] MEDS: IBUPROFEN 600 MG (MOTRIN) TAB PO SCH ×4 (04:11→16:42)
[2021-11-01] MEDS: ACETAMINOPHEN 500 MG TAB (TYLENOL) PO SCH ×2 (04:11→04:34)
[2021-11-01 04:34] VITALS: BP 120/74
[2021-11-01 06:17] LABS: BASOPHILS % (AUTO) 0 % (0-10); EOSINOPHILS % (AUTO) 1 % (0-10); HEMATOCRIT 33 % (35-52); HEMOGLOBIN 11.1 g/dL (11.5-16.0); LYMPHOCYTES # (AUTO) 2.4 10^3/uL (1.0-4.0); LYMPHOCYTES % (AUTO) 32 % (12-44); MEAN CORPUSCULAR HEMOGLOBIN 31 pg (25-34); MEAN CORPUSCULAR HGB CONC 34 g/dL (32-36); MEAN CORPUSCULAR VOLUME 91 fL (80-99); MEAN PLATELET VOLUME 11.9 fL (9.0-12.2); MONOCYTES # (AUTO) 0.6 10^3/uL (0.0-1.0); MONOCYTES % (AUTO) 7 % (0-12); NEUTROPHILS # (AUTO) 4.6 10^3/uL (1.8-7.8); NEUTROPHILS % (AUTO) 60 % (42-75); PLATELET COUNT 163 10^3/uL (130-400); WHITE BLOOD COUNT 7.6 10^3/uL (4.3-11.0)
[2021-11-01] MEDS ORDERED: PRENATAL VITAMIN 1 EA TAB PO SCH (07:00)
[2021-11-01] MEDS: OXYTOCIN PRE-MIX DRIP 500 ML IV SCH (07:31)
[2021-11-01] MEDS ORDERED: FERROUS SULF 325 MG (IRON) TAB PO SCH (09:00)
--- NOTE | 2021-11-01 09:11 | Postpartum Progress Note ---
Note Note Day #1 Subjective: Patient is without complaints. Ambulating, voiding. Tolerating a regular diet without nausea or vomiting. Normal lochia. Pain is well controlled with oral pain medications. Objective: Physical Exam: General - Alert and oriented, no apparent distress Abdomen - Soft, appropriately tender to palpation, non-distended, fundus firm at umbilicus Extremities - no edema, negative Lance's bilaterally Assessment: PPD 1 NVD Acute blood loss anemia Plan: Routine care. Encourage breast feeding. Encourage ambulation. Ferrous sulfate supplementation. Plan for discharge today Vitals - Labs Vital Signs - I&O Vital Signs Date Time Temp Pulse Resp B/P (MAP) Pulse Ox O2 Delivery O2 Flow Rate FiO2 11/01/21 04:34 36.3 60 18 120/74 (89) 97 Room Air 11/01/21 00:00 36.3 58 18 132/68 (89) 97 Room Air 10/31/21 21:09 36.4 79 18 113/58 (76) 97 Room Air 10/31/21 16:27 36.6 65 18 121/63 (82) 96 Room Air 10/31/21 14:31 57 18 119/59 (79) Room Air 10/31/21 13:58 64 18 112/75 (87) Room Air 10/31/21 13:43 75 18 112/64 (80) Room Air 10/31/21 13:28 76 18 101/55 (70) Room Air 10/31/21 13:14 77 18 105/57 (73) Room Air 10/31/21 12:59 69 18 115/57 (76) 99 Room Air 10/31/21 12:56 73 18 124/65 (84) Room Air 10/31/21 12:53 66 18 102/58 (73) 98 Room Air 10/31/21 12:50 67 18 109/58 (75) 100 Room Air 10/31/21 12:47 83 18 118/63 (81) Room Air 10/31/21 12:44 64 18 117/57 (77) 100 Room Air 10/31/21 12:41 81 18 122/56 (78) Room Air 10/31/21 12:39 72 18 168/62 (97) 99 Room Air 10/31/21 12:36 71 18 100/59 (73) 100 Room Air 10/31/21 12:33 36.2 75 18 115/64 (81) Room Air 10/31/21 12:30 68 18 111/54 (73) 99 Room Air 10/31/21 12:27 67 18 102/63 (76) Room Air 10/31/21 12:19 72 18 114/62 (79) 97 Room Air 10/31/21 12:17 69 18 127/66 (86) 97 Room Air 10/31/21 12:14 75 18 113/71 (85) 97 Room Air 10/31/21 12:11 67 18 95/53 (67) 10/31/21 12:08 61 18 194/69 (110) 97 Room Air 10/31/21 12:04 71 18 123/78 (93) 97 Room Air 10/31/21 12:01 70 18 124/82 (96) 99 Room Air 10/31/21 11:58 66 18 121/79 (93) 97 Room Air 10/31/21 11:55 69 18 134/83 (100) 96 Room Air 10/31/21 11:52 71 18 133/83 (100) 97 Room Air 10/31/21 11:42 75 18 138/75 (96) Room Air 10/31/21 11:28 36.3 60 18 121/66 (84) Room Air 10/31/21 11:12 72 18 116/73 (87) Room Air 10/31/21 10:59 65 18 108/58 (75) Room Air 10/31/21 10:41 80 18 136/80 (98) Room Air 10/31/21 10:29 73 18 129/70 (89) Room Air 10/31/21 10:11 70 18 116/62 (80) Room Air 10/31/21 09:57 74 18 114/69 (84) Room Air 10/31/21 09:45 70 18 117/70 (86) Room Air 10/31/21 09:14 67 18 122/69 (86) Room Air I & O 11/01/21 07:00 Intake Total 3000 ml Balance 3000 ml Labs Laboratory Tests 11/01/21 05:35: White Blood Count 7.6, Red Blood Count 3.59L, Hemoglobin 11.1L, Hematocrit 33L, Mean Corpuscular Volume 91, Mean Corpuscular Hemoglobin 31, Mean Corpuscular Hemoglobin Concent 34, Red Cell Distribution Width 13.4, Platelet Count 163, Mean Platelet Volume 11.9, Immature Granulocyte % (Auto) 0, Neutrophils (%) (A uto) 60, Lymphocytes (%) (Auto) 32, Monocytes (%) (Auto) 7, Eosinophils (%) (Auto) 1, Basophils (%) (Auto) 0, Neutrophils # (Auto) 4.6, Lymphocytes # (Auto) 2.4, Monocytes # (Auto) 0.6, Eosinophils # (Auto) 0.0, Basophils # (Auto) 0.0, Immature Granulocyte # (Auto) 0.0 NATALIE MOREIRA DO Nov 01, 2021 09:11
[2021-11-01 09:14] VITALS: BP 109/71
[2021-11-01] MEDS: DOCUSATE SODIUM 100 MG (COLACE) CAP PO SCH (09:21)
[2021-11-01 12:46] VITALS: BP 118/75
[2021-11-01] MEDS: WITCH HAZEL(TUCKS) 40 EA JAR TOP PRN (16:43)
--- NOTE | 2021-11-01 16:43 | Anesthesia-Regional Post-Op ---
Regional Patient Condition Mental Status: Alert, Oriented x3 Circulation: Same as Pre-Op Headache: Absent Sensation: Full Recovery Motor Block: Absent Post Op Complications Complications None Follow Up Care/Instructions Patient Instructions None needed. Anesthesia/Patient Condition Patient is doing well, no complaints, stable vital signs, no apparent adverse anesthesia problems. No complications reported per nursing. ROZ LONG CRNA Nov 01, 2021 16:43
== END 2021-11-01 17:05 | disposition home or self-care (01) | DRG 806 ==
LOC: LDRP 20:55
PROVIDERS: ADMIT Obstetrics & Gynecology; ATTEND Obstetrics & Gynecology
PROC: 10E0XZZ Delivery of Products of Conception, External Approach (ICD-10-PCS; principal; 2021-10-31)
PROC: 10907ZC Drainage of Amniotic Fluid, Therapeutic from Products of Conception, Via Natural or Artificial Opening (ICD-10-PCS; 2021-10-31)
PROC: 0HQ9XZZ Repair Perineum Skin, External Approach (ICD-10-PCS; 2021-10-31)
DX: O69.81X0 Labor and delivery complicated by cord around neck, without compression, not applicable or unspecified (principal); D62 Acute posthemorrhagic anemia; Z37.0 Single live birth; Z3A.39 39 weeks gestation of pregnancy; O70.0 First degree perineal laceration during delivery; O90.81 Anemia of the puerperium
CPT/HCPCS: 36415; 81000; 85025; 86850; 86900; 86901